=== PATIENT | male | born 1970 | race Caucasian/White ===

== ENCOUNTER 2019-04-14 22:42 | Inpatient (IN) | payer MEDICAID ==
[~2019-04-14] VITALS: Ht 170.2 cm; Wt 90.7 kg
[2019-04-14 22:51] VITALS: Ht 170.2 cm; Wt 90.7 kg
[2019-04-14] MEDS ORDERED: ACETAMINOPHEN 325 MG TAB PO STA (23:07)
[2019-04-14] MEDS ORDERED: SODIUM CHLORIDE 0.9% 1L BAG IV* STA (23:07)
[2019-04-14] MEDS ORDERED: CEFTRIAXONE 1 GM/50 ML (PMX) 50 ML IVPB STA (23:07)
[2019-04-15] MEDS ORDERED: metroNIDAZOLE 500 MG/NS (PMX) 100 ML IVPB ONE (00:30)
--- NOTE | 2019-04-15 00:42 | ERD ---
ER Documentation Chief Complaint Chief Complaint FEVER, AP X'S 1 DAY HPI This 48-year-old male who presents for evaluation of abdominal pain and fever. Code sepsis was called in triage, patient reports that he has been having fever and abdominal pain, mostly located over his epigastric area for the last day. He denies any chest pain or shortness of breath, he has not had dysuria, endorses a mild cough, with a prior history of hernia repair, otherwise she has no other abdominal surgeries. Symptoms are constant, and are not alleviated or aggravated by anything. ROS All systems reviewed and are negative except as per history of present illness. Allergies Allergies: Coded Allergies: No Known Allergy (Unverified , 04/14/19) PMhx/Soc Medical and Surgical Hx: pt denies Medical Hx Hx Alcohol Use: Yes Hx Substance Use: No Hx Tobacco Use: No Smoking Status: Never smoker FmHx Family History: diabetes Physical Exam Vitals Vital Signs Date Temp Pulse Resp B/P (MAP) Pulse Ox O2 O2 Flow FiO2 Time Delivery Rate 04/14/19 103.4 95 18 140/70 95 22:51 (93) Physical Exam Const: Fever noted, patient appears uncomfortable, Head: Atraumatic Eyes: Normal Conjunctiva ENT: Normal External Ears, Nose and Mouth. Neck: Full range of motion. No meningismus. Resp: Clear to auscultation bilaterally, no wheezes rales or rhonchi Cardio: Regular rate and rhythm, no murmurs, no JVD Abd: Soft, there is epigastric tenderness, negative Lyman sign, negative McBurney's point tenderness, non distended. Normal bowel sounds Skin: No petechiae or rashes Back: No midline or flank tenderness Ext: No cyanosis, or edema Neur: Awake and alert Psych: Normal Mood and Affect Result Diagram: 04/14/19 2303 04/14/19 230 Results 24 hrs Laboratory Tests Test 04/14/19 23:03 04/14/19 23:09 White Blood Count 6.8 10^3/ul Red Blood Count 5.11 10^6/ul Hemoglobin 13.7 g/dl Hematocrit 39.5 % Mean Corpuscular Volume 77.3 fl Mean Corpuscular Hemoglobin 26.8 pg Mean Corpuscular Hemoglobin Concent 34.7 g/dl Red Cell Distribution Width 13.8 % Platelet Count 184 10^3/UL Mean Platelet Volume 10.5 fl Immature Granulocytes % 0.300 % Neutrophils % 78.4 % Lymphocytes % 13.9 % Monocytes % 7.2 % Eosinophils % 0.1 % Basophils % 0.1 % Nucleated Red Blood Cells % 0.0 /100WBC Immature Granulocytes # 0.020 10^3/ul Neutrophils # 5.4 10^3/ul Lymphocytes # 1.0 10^3/ul Monocytes # 0.5 10^3/ul Eosinophils # 0.0 10^3/ul Basophils # 0.0 10^3/ul Nucleated Red Blood Cells # 0.0 10^3/ul Prothrombin Time 15.7 Sec Prothrombin Time Ratio 1.2 INR International Normalized Ratio 1.24 Activated Partial Thromboplast Time 31.5 Sec Urine Color YELLOW Urine Clarity CLEAR Urine pH 6.0 Urine Specific [place] 1.012 Urine Ketones NEGATIVE mg/dL Urine Nitrite NEGATIVE mg/dL Urine Bilirubin NEGATIVE mg/dL Urine Urobilinogen 1+ mg/dL Urine Leukocyte Esterase NEGATIVE [place]/ul Urine Hemoglobin NEGATIVE mg/dL Urine Glucose NEGATIVE mg/dL Urine Total Protein NEGATIVE mg/dl Sodium Level 138 mmol/L Potassium Level 3.8 mmol/L Chloride Level 106 mmol/L Carbon Dioxide Level 23 mmol/L Anion Gap 9 Blood Urea Nitrogen 13 mg/dl Creatinine 0.97 mg/dl Est Glomerular Filtrat Rate mL/min > 60 mL/min Glucose Level 114 mg/dl Calcium Level 8.4 mg/dl Total Bilirubin 4.1 mg/dl Direct Bilirubin 0.00 mg/dl Indirect Bilirubin 4.1 mg/dl Aspartate Amino Transf (AST/SGOT) 58 IU/L Alanine Aminotransferase (ALT/SGPT) 73 IU/L Alkaline Phosphatase 72 IU/L Troponin I < 0.012 ng/ml Total Protein 7.6 g/dl Albumin 3.9 g/dl Globulin 3.70 g/dl Albumin/Globulin Ratio 1.05 POC Venous Lactate 1.1 mmol/L Current Medications Medications Dose Sig/Maciej Start Time Status Last (Trade) Ordered Route PRN Stop Time Admin Dose Reason Admin Sodium 2,720 ml BOLUS OVER 2 04/14/19 DC 04/14/19 Chloride HOURS STAT 23:07 04/14/19 23:13 (NS) IV* 23:10 650 mg ONCE STAT 04/14/19 DC 04/14/19 Acetaminophen PO 23:07 7/3/19 23:18 (Tylenol 23:10 Tab) Ceftriaxone 50 ml @ ONCE STAT 04/14/19 DC 04/14/19 Sodium 100 mls/hr IVPB 23:07 04/14/19 23:18 23:36 100 ml @ ONCE ONCE 04/15/19 Metronidazole 100 mls/hr IVPB 00:30 04/15/19 01:29 Procedures/MDM 48-year-old male presents for evaluation of abdominal pain. Patient was called as a code sepsis, with initial source of consideration of infection intra- abdominal versus such as pyelonephritis. His urinalysis returned negative, his labs were overall unremarkable, and his lactate was within normal limits, his CT abdomen pelvis returned showing colitis which I suspect is the most likely source of infection. On reassessment, the patient continued to have abdominal pain and nausea, thus he will be admitted for symptom control and for further fever work-up as needed. I noted that the chest x-ray showed pulmonary congestion, however the patient does not exhibit signs or symptoms of acute CHF such as lower leg swelling, no JVD or rales on exam. He did receive 30 cc/kg of fluids. Sepsis Documentation: Patient's infectious symptoms have not stabilized and the patient is at risk of rapid decompensation. The patient will be admitted for careful hydration, antibiotic therapy, and infectious source control. SEVERE SEPSIS CRITERIA: Infectious source: Intra-abdominal End organ damage indicated by: No evidence of endorgan damage SEPSIS MANAGEMENT Time of recognition of sepsis: [Upon arrival]. Time of recognition of severe sepsis: [No severe sepsis at this time]. Time of recognition of septic shock: [No septic shock at this time]. 3 HOUR BUNDLE Blood cultures x 2 before broad-spectrum antibiotics: [Yes] 30 ml/kg NS bolus [Completed] Initial lactate 1.2 Repeat lactate not indicated SEPTIC SHOCK ASSESSMENT: CRITICAL CARE Critical care time [35] minutes Emergent fluid management while maintaining close respiratory support. Provision of immediate and broad-spectrum antibiotic therapy. Simultaneous assessment for possible sources in order to direct targeted therapy. Consideration for invasive and chemical support to prevent cardiopulmonary nelsy apse. Critical care time is independent of procedures performed. Accepting Care Team: Current data and ongoing care discussed. Primary: Amde Consulting: None Outstanding Data: Gallbladder ultrasound, as noted elevated bilirubin, CT abdomen pelvis showed no evidence of acute cholecystitis. Departure Diagnosis: Primary Impression: Fever Fever type: unspecified Qualified Codes: R50.9 - Fever, unspecified Additional Impression: Sepsis Sepsis type: sepsis due to unspecified organism Qualified Codes: A41.9 - Sepsis, unspecified organism Condition: Serious VANCE MONROE MD Apr 15, 2019 00:42
[2019-04-15] MEDS ORDERED: ONDANSETRON 4 MG INJ IV PRN ×2 (01:00→01:30)
[2019-04-15] MEDS ORDERED: ACETAMINOPHEN 325 MG TAB PO PRN ×2 (01:00→01:30)
[2019-04-15] MEDS ORDERED: ALBUTEROL/IPRATROPIUM (NEB) 3 ML AMP HHN PRN (01:30)
[2019-04-15] MEDS ORDERED: NACL 0.9% 3 ML SYG IV SCH (01:30)
[2019-04-15] MEDS: SOD CHLORIDE 0.9% 1,000 ML IV SCH ×3 (03:29→18:05)
[2019-04-15] MEDS: PIPER-TAZO 3.375 GM IV (PMX) 100 ML IVPB SCH ×4 (05:40→23:30)
--- NOTE | 2019-04-15 06:37 | HP ---
Date/Time of Note Date/Time of Note DATE: 04/15/19 TIME: 06:34 Assessment/Plan VTE Prophylaxis Pharmacological prophylaxis: heparin Lines/Catheters IV [facility]from [facility] Saline Lock Urinary Cath still in place: No Assessment/Plan Assessment/Plan 1. Sepsis, suspect from gastroenteritis -Empiric IV antibiotic -IV fluid -Follow-up culture results -CT without acute abdominopelvic findings 2. Incidental finding of 5 mm left lower lung nodule -Follow-up with the periodic CT as outpatient Result Diagram: 04/15/19 0341 04/15/19 0341 Results 24hrs Laboratory Tests Test 04/14/19 23:03 04/14/19 23:09 04/15/19 01:08 04/15/19 03:41 White Blood Count 6.8 4.8 # Red Blood Count 5.11 4.68 L Hemoglobin 13.7 L 12.5 L Hematocrit 39.5 L 36.5 L Mean Corpuscular Volume 77.3 L 78.0 L Mean Corpuscular 26.8 L 26.7 L Hemoglobin Mean Corpuscular 34.7 34.2 Hemoglobin Concent Red Cell Distribution 13.8 13.9 Width Platelet Count 184 171 Mean Platelet Volume 10.5 H 11.0 H Immature Granulocytes % 0.300 0.200 Neutrophils % 78.4 H 76.2 Lymphocytes % 13.9 L 17.1 Monocytes % 7.2 6.3 Eosinophils % 0.1 0.0 Basophils % 0.1 0.2 Nucleated Red Blood 0.0 0.0 Cells % Immature Granulocytes # 0.020 0.010 Neutrophils # 5.4 3.7 Lymphocytes # 1.0 0.8 Monocytes # 0.5 0.3 Eosinophils # 0.0 0.0 Basophils # 0.0 0.0 Nucleated Red Blood 0.0 0.0 Cells # Prothrombin Time 15.7 H Prothrombin Time Ratio 1.2 INR International 1.24 Normalized Ratio Activated 31.5 Partial Thromboplast Time Urine Color YELLOW Urine Clarity CLEAR Urine pH 6.0 Urine Specific [place] 1.012 Urine Ketones NEGATIVE Urine Nitrite NEGATIVE Urine Bilirubin NEGATIVE Urine Urobilinogen 1+ H Urine Leukocyte Esterase NEGATIVE Urine Hemoglobin NEGATIVE Urine Glucose NEGATIVE Urine Total Protein NEGATIVE Sodium Level 138 143 Potassium Level 3.8 4.2 Chloride Level 106 109 Carbon Dioxide Level 23 26 Anion Gap 9 8 Blood Urea Nitrogen 13 10 Creatinine 0.97 0.93 Est Glomerular Filtrat > 60 > 60 Rate mL/min Glucose Level 114 109 Calcium Level 8.4 8.2 L Total Bilirubin 4.1 H 3.9 H Direct Bilirubin 0.00 0.00 Indirect Bilirubin 4.1 H 3.9 H Aspartate Amino 58 H 46 Transf (AST/SGOT) Alanine 73 H 71 H Aminotransferase (ALT/SG PT) Alkaline Phosphatase 72 59 Troponin I < 0.012 Total Protein 7.6 6.5 # Albumin 3.9 3.3 Globulin 3.70 H 3.20 Albumin/Globulin Ratio 1.05 1.03 POC Venous Lactate 1.1 Lactic Acid Level 0.9 0.8 Phosphorus Level 3.4 Magnesium Level 1.8 HPI/ROS Admit Date/Time Admit Date/Time Apr 15, 2019 at 00:43 Hx of Present Illness Patient is a 48-year-old male with no significant past medical history presents the ER complaining of abdominal pain and fever. Patient also reported having had an episode of watery diarrhea a week ago. Symptoms been going on for about a day or two. Abdominal pain is mainly located in the epigastric area. Denied chest pain, shortness of breath. Who presented to ER, he was febrile with temperature of 103.4, initial heart rate in the 90s. BP WNL. WBC 6.8. Chest x-ray shows mild central pulmonary vascular congestion and mild cardiomegaly otherwise no acute findings. UA is not consistent with UTI. CT abdomen/pelvis without acute findings except an incidental finding of a 5 mm left lower lung nodule. PMH/Family/Social Past Medical History Medical History: other (See HPI) Medications Current Medications Ondansetron HCl (Zofran Inj) 4 mg ER BRIDGE PRN IV NAUSEA/VOMITING; Start 04/15/19 at 01:00; Stop 04/16/19 at 00:59 Acetaminophen (Tylenol Tab) 650 mg ER BRIDGE PRN PO .MILD PAIN 1-3 OR TEMP; Start 04/15/19 at 01:00; Stop 04/16/19 at 00:59 Sodium Chloride 1,000 ml @ 100 mls/hr Q10H IV Last administered on 04/15/19at 03:29; Admin Dose 100 MLS/HR; Start 04/15/19 at 01:18 IV Flush (NS 3 ml) 3 ml PER PROTOCOL IV ; Start 04/15/19 at 01:30 Ondansetron HCl (Zofran Inj) 4 mg Q6H PRN IV NAUSEA/VOMITING; Start 04/15/19 at 01:30 Acetaminophen (Tylenol Tab) 650 mg Q6H PRN PO .PAIN 1-3 OR TEMP; Start 04/15/19 at 01:30 Heparin Sodium (Porcine) (Heparin (5000 Units/1ml)) 5,000 unit Q12 SC ; Start 04/15/19 at 09:00 Albuterol/ Ipratropium (Duoneb) 3 ml Q2H RESP THERAPY PRN HHN SHORTNESS OF BREATH; Start 04/15/19 at 01:30 Piperacillin Sod/ Tazobactam Sod 100 ml @ 200 mls/hr Q6H IVPB Last administered on 04/15/19at 05:40; Admin Dose 200 MLS/HR; Start 04/15/19 at 06:00 Coded Allergies: No Known Allergy (Unverified , 04/14/19) Past Surgical History Past Surgical Hx: other (See HPI) Family History Significant Family History: no pertinent family hx Social History Alcohol Use: other Smoking Status: Never smoker Drug Use: none Exam/Review of Systems Vital Signs Vitals Vital Signs Date Temp Pulse Resp B/P (MAP) Pulse Ox O2 O2 Flow FiO2 Time Delivery Rate 04/15/19 99.0 76 18 129/75 97 Room Air 02:03 (93) Exam Constitutional: alert, oriented, well developed Head: normocephalic, atraumatic Eyes: EOMI, PERRL Respiratory: clear to auscultation, normal air movement Cardiovascular: regular rate and rhythm Gastrointestinal: soft, other (Some tenderness in the lower abdominal region) Extremities: normal pulses ANAM VELASQUEZ MD Apr 15, 2019 06:37
[2019-04-15 08:17] VITALS: BP 130/80; PULSE 75; RESP 18
[2019-04-15] MEDS: HEPARIN 5,000 UNIT/1 ML VIAL SC SCH ×2 (08:26→20:35)
[2019-04-15 14:00] VITALS: BP 137/75; PULSE 75; RESP 18
--- NOTE | 2019-04-15 14:06 | PDOCDIS ---
Discharge Instructions DIAGNOSIS Discharge Diagnosis 1. Sepsis, suspect from gastroenteritis 2. Incidental finding of 5 mm left lower lung nodule CONDITION [id number] Patient Condition: [id number] Stable HOME CARE INSTRUCTIONS: [id number] Diet Instructions: [id number] Low Fat /Cholesterol FOLLOW UP/APPOINTMENTS Follow-up Plan 1. Follow up with your primary care provider in one week AVELINA ALVARADO NP Apr 15, 2019 14:06
--- NOTE | 2019-04-15 16:13 | PN ---
Date/Time of Note Date/Time of Note DATE: 04/15/19 TIME: 16:10 Assessment/Plan VTE Prophylaxis Risk score (from Ns)>0 risk: 1 SCD applied (from Ns): Yes Pharmacological prophylaxis: NA/contraindicated Pharm contraindication: low risk/ambulating Lines/Catheters [facility] Peripheral IV Urinary Cath still in place: No Assessment/Plan Hospital Course 1. Sepsis, suspect from gastroenteritis -Empiric IV antibiotic -IV fluid -Follow-up culture results -CT without acute abdominopelvic findings - Monitor for downward trend of fever. Antipyretics prn 2. Incidental finding of 5 mm left lower lung nodule -Follow-up with outpatient primary for further management and care DISPO/PLAN: continue current tx. Plan for d/c within the next 24 hours if patient able to tolerate diet well and fever resolved. Discussed POC with Dr. Bauer Result Diagram: 04/15/19 0341 04/15/19 0341 Results 24hrs Laboratory Tests Test 04/14/19 23:03 04/14/19 23:09 04/15/19 01:08 04/15/19 03:41 White Blood Count 6.8 4.8 # Red Blood Count 5.11 4.68 L Hemoglobin 13.7 L 12.5 L Hematocrit 39.5 L 36.5 L Mean Corpuscular Volume 77.3 L 78.0 L Mean Corpuscular 26.8 L 26.7 L Hemoglobin Mean Corpuscular 34.7 34.2 Hemoglobin Concent Red Cell Distribution 13.8 13.9 Width Platelet Count 184 171 Mean Platelet Volume 10.5 H 11.0 H Immature Granulocytes % 0.300 0.200 Neutrophils % 78.4 H 76.2 Lymphocytes % 13.9 L 17.1 Monocytes % 7.2 6.3 Eosinophils % 0.1 0.0 Basophils % 0.1 0.2 Nucleated Red Blood 0.0 0.0 Cells % Immature Granulocytes # 0.020 0.010 Neutrophils # 5.4 3.7 Lymphocytes # 1.0 0.8 Monocytes # 0.5 0.3 Eosinophils # 0.0 0.0 Basophils # 0.0 0.0 Nucleated Red Blood 0.0 0.0 Cells # Prothrombin Time 15.7 H Prothrombin Time Ratio 1.2 INR International 1.24 Normalized Ratio Activated 31.5 Partial Thromboplast Time Urine Color YELLOW Urine Clarity CLEAR Urine pH 6.0 Urine Specific [place] 1.012 Urine Ketones NEGATIVE Urine Nitrite NEGATIVE Urine Bilirubin NEGATIVE Urine Urobilinogen 1+ H Urine Leukocyte Esterase NEGATIVE Urine Hemoglobin NEGATIVE Urine Glucose NEGATIVE Urine Total Protein NEGATIVE Sodium Level 138 143 Potassium Level 3.8 4.2 Chloride Level 106 109 Carbon Dioxide Level 23 26 Anion Gap 9 8 Blood Urea Nitrogen 13 10 Creatinine 0.97 0.93 Est Glomerular Filtrat > 60 > 60 Rate mL/min Glucose Level 114 109 Calcium Level 8.4 8.2 L Total Bilirubin 4.1 H 3.9 H Direct Bilirubin 0.00 0.00 Indirect Bilirubin 4.1 H 3.9 H Aspartate Amino 58 H 46 Transf (AST/SGOT) Alanine 73 H 71 H Aminotransferase (ALT/SG PT) Alkaline Phosphatase 72 59 Troponin I < 0.012 Total Protein 7.6 6.5 # Albumin 3.9 3.3 Globulin 3.70 H 3.20 Albumin/Globulin Ratio 1.05 1.03 POC Venous Lactate 1.1 Lactic Acid Level 0.9 0.8 Phosphorus Level 3.4 Magnesium Level 1.8 Subjective 24 Hr Interval Summary Free Text/Dictation reports less abd pain and able to have normal bowel movement. Exam/Review of Systems Exam Vitals Vital Signs Date Temp Pulse Resp B/P (MAP) Pulse Ox O2 O2 Flow FiO2 Time Delivery Rate 04/15/19 99.3 75 18 137/75 18 Room Air 14:00 (95) Intake and Output 04/14/19 04/14/19 04/15/19 1515:00 23:00 07:00 IntakeIntake Total 500 ml BalanceBalance 500 ml Constitutional: alert, oriented Psych: nl mood/affect Head: normocephalic Eyes: nl conjunctiva Neck: supple, non-tender Respiratory: clear to auscultation Cardiovascular: regular rate and rhythm Gastrointestinal: soft, non-tender Musculoskeletal: nl extremities to inspection Neurological: SUTURE GAUGER II-XII intact, nl mental status, nl speech Skin: nl turgor Results Results 24hrs Laboratory Tests Test 04/14/19 23:03 04/14/19 23:09 04/15/19 01:08 04/15/19 03:41 White Blood Count 6.8 4.8 # Red Blood Count 5.11 4.68 L Hemoglobin 13.7 L 12.5 L Hematocrit 39.5 L 36.5 L Mean Corpuscular Volume 77.3 L 78.0 L Mean Corpuscular 26.8 L 26.7 L Hemoglobin Mean Corpuscular 34.7 34.2 Hemoglobin Concent Red Cell Distribution 13.8 13.9 Width Platelet Count 184 171 Mean Platelet Volume 10.5 H 11.0 H Immature Granulocytes % 0.300 0.200 Neutrophils % 78.4 H 76.2 Lymphocytes % 13.9 L 17.1 Monocytes % 7.2 6.3 Eosinophils % 0.1 0.0 Basophils % 0.1 0.2 Nucleated Red Blood 0.0 0.0 Cells % Immature Granulocytes # 0.020 0.010 Neutrophils # 5.4 3.7 Lymphocytes # 1.0 0.8 Monocytes # 0.5 0.3 Eosinophils # 0.0 0.0 Basophils # 0.0 0.0 Nucleated Red Blood 0.0 0.0 Cells # Prothrombin Time 15.7 H Prothrombin Time Ratio 1.2 INR International 1.24 Normalized Ratio Activated 31.5 Partial Thromboplast Time Urine Color YELLOW Urine Clarity CLEAR Urine pH 6.0 Urine Specific [place] 1.012 Urine Ketones NEGATIVE Urine Nitrite NEGATIVE Urine Bilirubin NEGATIVE Urine Urobilinogen 1+ H Urine Leukocyte Esterase NEGATIVE Urine Hemoglobin NEGATIVE Urine Glucose NEGATIVE Urine Total Protein NEGATIVE Sodium Level 138 143 Potassium Level 3.8 4.2 Chloride Level 106 109 Carbon Dioxide Level 23 26 Anion Gap 9 8 Blood Urea Nitrogen 13 10 Creatinine 0.97 0.93 Est Glomerular Filtrat > 60 > 60 Rate mL/min Glucose Level 114 109 Calcium Level 8.4 8.2 L Total Bilirubin 4.1 H 3.9 H Direct Bilirubin 0.00 0.00 Indirect Bilirubin 4.1 H 3.9 H Aspartate Amino 58 H 46 Transf (AST/SGOT) Alanine 73 H 71 H Aminotransferase (ALT/SG PT) Alkaline Phosphatase 72 59 Troponin I < 0.012 Total Protein 7.6 6.5 # Albumin 3.9 3.3 Globulin 3.70 H 3.20 Albumin/Globulin Ratio 1.05 1.03 POC Venous Lactate 1.1 Lactic Acid Level 0.9 0.8 Phosphorus Level 3.4 Magnesium Level 1.8 Medications Medication Current Medications Ondansetron HCl (Zofran Inj) 4 mg ER BRIDGE PRN IV NAUSEA/VOMITING; Start 04/15/19 at 01:00; Stop 04/16/19 at 00:59 Acetaminophen (Tylenol Tab) 650 mg ER BRIDGE PRN PO .MILD PAIN 1-3 OR TEMP; Start 04/15/19 at 01:00; Stop 04/16/19 at 00:59 Sodium Chloride 1,000 ml @ 100 mls/hr Q10H IV Last administered on 04/15/19at 03:29; Admin Dose 100 MLS/HR; Start 04/15/19 at 01:18 IV Flush (NS 3 ml) 3 ml PER PROTOCOL IV ; Start 04/15/19 at 01:30 Ondansetron HCl (Zofran Inj) 4 mg Q6H PRN IV NAUSEA/VOMITING; Start 04/15/19 at 01:30 Acetaminophen (Tylenol Tab) 650 mg Q6H PRN PO .PAIN 1-3 OR TEMP; Start 04/15/19 at 01:30 Heparin Sodium (Porcine) (Heparin (5000 Units/1ml)) 5,000 unit Q12 SC Last administered on 04/15/19at 08:26; Admin Dose 5,000 UNIT; Start 04/15/19 at 09:00 Albuterol/ Ipratropium (Duoneb) 3 ml Q2H RESP THERAPY PRN HHN SHORTNESS OF BREATH; Start 04/15/19 at 01:30 Piperacillin Sod/ Tazobactam Sod 100 ml @ 200 mls/hr Q6H IVPB Last administered on 04/15/19at 11:35; Admin Dose 200 MLS/HR; Start 04/15/19 at 06:00 AVELINA ALVARADO NP Apr 15, 2019 16:13
[2019-04-15 20:00] VITALS: BP 131/82; PULSE 66; RESP 18
[2019-04-16 02:00] VITALS: BP 115/63; PULSE 60; RESP 17
[2019-04-16] MEDS: PIPER-TAZO 3.375 GM IV (PMX) 100 ML IVPB SCH (05:36)
[2019-04-16] MEDS: SOD CHLORIDE 0.9% 1,000 ML IV SCH (05:36)
[2019-04-16 07:52] VITALS: BP 135/73; PULSE 63; RESP 18
[2019-04-16] MEDS: HEPARIN 5,000 UNIT/1 ML VIAL SC SCH (08:05)
--- NOTE | 2019-04-16 11:16 | RADRPT ---
Echocardiogram Report Patient Name: Cari PHELPS ID: [id number] : 1970 (48y 5m)Study Date: 04/15/2019 7:43:44 AM Gender: Mitzicession #: [id number] Tech: [facility] Location: 2244-A Ref.Physician: ANAM VELASQUEZ Height(Cm): BSA: Weight(Kg): Quality: AdequateOrder Physician: ANAM VELASQUEZ Account #: Procedures: Echocardiographic Report: Transthoracic echocardiogram with complete 2D, M-Mode, and doppler examination. Indications: Abn CXR. Measurements: 2D/M Mode Doppler Measurement Value Normal Range Measurement Value Normal Range LVIDd 2D 3.4 [ 4.2 - 5.8 ] cm AV Peak Kody 1.5 [ 100.0 - 170.0 ] cm/se c LVIDs 2D 2.1 [ 2.5 - 4.0 ] cm AV Peak PG 9.0 [ 2.0 - 9.0 ] mmHg LVPWd 2D 0.9 [ 0.6 - 1.0 ] cm LVOT Peak [place] 1.1 [ 70.0 - 110.0 ] cm/sec IVSd 2D 0.9 [ 0.6 - 1.0 ] cm LVOT Peak PG 5.0 [ 2.0 - 6.0 ] mmHg AoR Diam 2D 3.0 [ 2.6 - 3.4 ] cm MV E Peak Kody 0.9 [ 60.0 - 130.0 ] cm/sec EDV 2D 48.5 [ 62.0 - 150.0 ] ml MV A Peak [place] 0.8 [ 100.0 - 120.0 ] cm/se c ESV 2D 14.8 [ 21.0 - 61.0 ] ml MV E/A 1.0 [ 0.8 - 1.5 ] ratio EF 2D 69.5 [ 52.0 - 72.0 ] percent MV PHT 50.0 [ 20.0 - 100.0 ] msec LA Dimen 2D 3.3 [ 3.0 - 4.0 ] cm MV Decel Time 169 [ 104 - 258 ] msec MV Decel [place] 5 Lat E` Kody 0.1 [ 10.0 - 15.0 ] cm/sec Lateral E/E` 6.3 [ 1.0 - 2.0 ] ratio Med E` Kody 0.1 cm/sec MV E/A 1.0 [ 0.8 - 1.5 ] ratio MVA PHT 4.4 [ 2.0 - 4.0 ] cm2 Findings: Left Ventricle: Normal left ventricular systolic function. Normal left ventricular cavity size. Normal left ventricular wall thickness. Ejection fraction is visually estimated at 55-60 %. Tissue Doppler/Mitral Doppler indices are within normal limits. Right Ventricle: Normal right ventricular size. Normal right ventricular systolic function. Left Atrium: The left atrium is normal in size. Right Atrium: The right atrium is normal in size. Atrial Septum: Normal atrial septum. Ventricular septum: Normal/intact ventricular septum. Mitral Valve: Normal appearance of the mitral valve. No mitral valve regurgitation is seen. Aortic Valve: Normal appearance of the aortic valve. No aortic regurgitation. Tricuspid Valve: Normal appearance of the tricuspid valve. Unable to obtain RVSP due to minimal presence of tricuspid regurgitation. No evidence of tricuspid regurgitation. Pulmonic Valve: Normal pulmonic valve appearance. No evidence of pulmonic regurgitation. Pericardium: Normal pericardium with no significant pericardial effusion. Aorta: Normal aortic root. IVC: The IVC is not well visualized. Conclusions: Normal left ventricular systolic function. Normal left ventricular cavity size. Normal left ventricular wall thickness. Ejection fraction is visually estimated at 55-60 %. Tissue Doppler/Mitral Doppler indices are within normal limits. Normal appearance of the mitral valve. No mitral valve regurgitation is seen. Normal appearance of the tricuspid valve. Unable to obtain RVSP due to minimal presence of tricuspid regurgitation. No evidence of tricuspid regurgitation. Electronically Signed By: Jaime Sampson 2019-04-16 11:15:26 PDT
--- NOTE | 2019-04-16 14:37 | DS ---
Date/Time of Note Date/Time of Note DATE: 04/16/19 TIME: 14:34 Discharge Summary Admission/Discharge Info Admit Date/Time Apr 15, 2019 at 00:43 Discharge Date/Time Apr 16, 2019 at 10:51 Discharge Diagnosis 1. Sepsis, suspect from gastroenteritis 2. Incidental finding of 5 mm left lower lung nodule Patient Condition: Stable Hospital Course This is a 48-year-old male with no significant past medical history who came to the hospital due to reports of abdominal pain and fever. Patient was also reporting having watery diarrhea 1 week ago prior to admission. He denied any chest pain or shortness of breath. When he came to the hospital he had a temperature of 100.4. Heart rate was in the 90s. Patient also did have abdominal CT scan with incidental finding of 5 mm left lower lung nodule. Patient was empirically placed on antibiotics initially. His fever did resolve. He was advanced on his diet. He did report normal bowel movement on the day of discharge and he was able to tolerate oral diet well. Was advised for outpatient follow-up with his primary doctor for incidental finding of 5 mm left lower lung nodule. During his course of stay did improve. Plan of care was discussed with the patient and he verbalizes understanding. On the day of discharge patient was in stable condition Discussed procedure with Dr. Bauer [place] Meds No Active Prescriptions or Reported Meds Follow-up Plan 1. Follow up with your primary care provider in one week Primary Care Provider Care Physician No Primary Time spent on discharge: > 30 minutes Pending Labs Laboratory Tests Test 04/16/19 05:12 White Blood Count 2.2 10^3/ul (4.8-10.8) Red Blood Count 4.80 10^6/ul (4.70-6.10) Hemoglobin 12.9 g/dl (14.0-18.0) Hematocrit 38.0 % (42.0-52.0) Mean Corpuscular Volume 79.2 fl (82.0-101.0) Mean Corpuscular Hemoglobin 26.9 pg (29.0-33.0) Mean Corpuscular Hemoglobin Concent 33.9 g/dl (32.0-37.0) Red Cell Distribution Width 14.2 % (11.5-14.5) Platelet Count 169 10^3/UL (140-415) Mean Platelet Volume 10.7 fl (7.4-10.4) Immature Granulocytes % 0.400 % (0.001-0.429) Neutrophils % % (39.0-77.0) Segmented Neutrophils % (Manual) 37 % (39-77) Band Neutrophils % (Manual) 3 % (0-4) Lymphocytes % % (15.0-51.0) Lymphocytes % (Manual) 47 % (15-51) Reactive Lymphocytes % (Manual) 2 % (0-0) Monocytes % % (0.0-11.0) Monocytes % (Manual) 7 % (0-11) Eosinophils % % (0.0-7.0) Eosinophils % (Manual) 4 % (0-7) Basophils % % (0.0-2.0) Nucleated Red Blood Cells % 0.0 /100WBC (0.0-0.0) Immature Granulocytes # 0.010 10^3/ul (0.0-0.031) Neutrophils # 10^3/ul (1.6-7.5) Neutrophils # (Manual) 0.8 10^3/ul (1.6-7.5) Band Neutrophils # 0.0 10^3/ul (0.0-0.6) Lymphocytes (Manual) 1.0 10^3/ul (0.8-2.9) Lymphocytes # 10^3/ul (0.8-2.9) Reactive Lymphocytes # 0.0 10^3/ul (0.0-0.0) Monocytes # 10^3/ul (0.3-0.9) Monocytes # (Manual) 0.1 10^3/ul (0.3-0.9) Eosinophils # 10^3/ul (0.0-0.5) Basophils # 10^3/ul (0.0-0.1) Nucleated Red Blood Cells # 10^3/ul (0.0-0.0) Platelet Estimate NORMAL Polychromasia 1+ (0-0) Poikilocytosis 1+ (0-0) Anisocytosis 1+ (0-0) Microcytosis 1+ (0-0) Target Cells 1+ (0-0) Sodium Level 143 mmol/L (135-144) Potassium Level 4.2 mmol/L (3.5-5.1) Chloride Level 112 mmol/L (97-110) Carbon Dioxide Level 26 mmol/L (21-31) Anion Gap 5 (5-13) Blood Urea Nitrogen 10 mg/dl (7-20) Creatinine 0.94 mg/dl (0.61-1.24) Est Glomerular Filtrat Rate mL/min > 60 mL/min (>60) Glucose Level 95 mg/dl (70-220) Calcium Level 8.3 mg/dl (8.4-10.2) Phosphorus Level 3.0 mg/dl (2.5-4.9) Magnesium Level 2.2 mg/dl (1.7-2.5) AVELINA ALVARADO NP Apr 16, 2019 14:37
== END 2019-04-16 10:51 | disposition home or self-care (01) | DRG 872 ==
LOC: E/R 22:42 → PP2 04-15 00:43
PROVIDERS: ADMIT Internal Medicine; ATTEND Internal Medicine
DX: A41.9 Sepsis, unspecified organism (principal); K52.9 Noninfective gastroenteritis and colitis, unspecified
CPT/HCPCS: 36415; 71045; 74176; 76705; 80048; 80053; 81003; 83605; 83735; 84100; 84484; 85025; 85610; 85730; 87045; 87075; 87086; 93005; 93306; 96374; 96375; J0696; J1644; J2543; J7030